=== PATIENT | female | born 1985 | race Two or more races ===

== ENCOUNTER 2016-12-05 01:48 | Emergency (ER) | payer OTHER ==
[2016-12-05 01:48] VITALS: BMI 33.9
[2016-12-05] MEDS ORDERED: Sodium Chloride 0.9% 1,000 ML IV ONE (03:18)
[2016-12-05] MEDS ORDERED: Sodium Chloride 0.9% 1,000 ML ONE (03:33)
[2016-12-05 03:37] LABS: BASO % 0.2 % (0.0-2.0); EOS # 0.1 K/uL (0.0-0.7); EOS % 0.5 % (0.0-4.0); HEMATOCRIT 42.9 % (34.0-47.0); LYMPH # 1.4 K/uL (1.0-4.3); LYMPH % 12.5 % (20.0-40.0); MEAN CELL VOLUME 82.4 fL (81.0-99.0); MEAN CORPUSCULAR HEMOGLOBIN 26.4 pg (27.0-31.0); MEAN CORPUSCULAR HGB CONC 32.1 g/dL (33.0-37.0); MEAN PLATELET VOLUME 8.2 fL (7.2-11.7); MONO # 0.7 K/uL (0.0-0.8); MONO % 6.7 % (0.0-10.0); RED CELL DISTRIBUTION WIDTH 13.2 % (11.5-14.5); WHITE BLOOD COUNT 11.2 K/uL (4.8-10.8)
[2016-12-05 03:47] LABS: CHLORIDE 105 mmol/L (98-107)
[2016-12-05 03:48] LABS: POTASSIUM 3.6 mmol/L (3.6-5.2); SODIUM 138 mmol/L (132-148)
[2016-12-05 03:50] LABS: ALB/GLOB RATIO 1.1 (1.0-2.1); AST/SGOT 22 U/L (14-36); BILIRUBIN,TOTAL 0.6 mg/dL (0.2-1.3); CARBON DIOXIDE 21 mmol/L (22-30); GFR AFRICAN-AMERICAN > 60; TOTAL PROTEIN 7.3 g/dL (6.3-8.3)
[2016-12-05 03:51] LABS: ALKALINE PHOSPHATASE 123 U/L (38-126); ALT/SGPT 27 U/L (9-52); BLOOD UREA NITROGEN 10 mg/dL (7-17); CALCIUM 8.8 mg/dl (8.6-10.4); GLUCOSE,RANDOM 111 mg/dL (65-105)
[2016-12-05 04:04] VITALS: RESP 16
[2016-12-05 04:20] LABS: THYROID STIMULATING HORMONE 0.84 mIU/L (0.46-4.68)
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
--- NOTE | 2016-12-05 04:38 | C.PDOC ---
Time Seen by Provider: 12/05/16 03:03 Chief Complaint (Nursing): Palpitations Past Medical History Vital Signs: Last Vital Signs Temp 98.1 F 12/05/16 02:14 Pulse 113 H 12/05/16 04:03 Resp 16 12/05/16 04:03 BP 130/72 12/05/16 04:03 Pulse Ox 100 12/05/16 04:03 Surgical History: - [facility] Procedures EXTRACTION OF POC, LOW CERVICAL, OPEN APPROACH (02/11/16) LOW CERVICAL (03/07/14) OCCLUSION OF BILATERAL FALLOPIAN TUBES, OPEN APPROACH (02/11/16) SURG INDUCT LABOR NEC (03/07/14) - Social History Hx Alcohol Use: No Hx Substance Use: No - Immunization History Hx Tetanus Toxoid Vaccination: Yes Hx Influenza Vaccination: Yes Hx Pneumococcal Vaccination: Yes ED Course And Treatment - Laboratory Results Result Diagrams: 12/05/16 03:34 12/05/16 03:34 O2 Sat by Pulse Oximetry: 100 Disposition Counseled Patient/Family Regarding: Diagnosis, Need For Followup - Disposition Referrals: [facility] [Outside] Disposition: HOME/ ROUTINE Disposition Time: 04:35 Condition: STABLE Additional Instructions: Increase PO fluids Follow up in clinic for further evaluation Return to ER if difficulty breathing, chest pain, dizziness, fainting or worse Instructions: Palpitations (ED) - Clinical Impression Clinical Impression: Palpitations
[2016-12-05 04:54] VITALS: BP 110/75; PULSE 105; TEMP 98.8
[2016-12-05 05:29] VITALS: O2SAT 100
--- NOTE | 2016-12-06 10:08 | CARD ---
APPROVED REPORT EKG Measurement Heart [id number] <Conclusion> Sinus tachycardia Otherwise normal ECG
== END 2016-12-05 05:09 | disposition home or self-care (01) ==
LOC: C.ER 01:48
DX: R00.2 Palpitations (principal)
CPT/HCPCS: 80053; 84443; 85025; 85378; 93005; 99285; J7040

== ENCOUNTER 2017-04-02 14:04 | Emergency (ER) | payer OTHER ==
[2017-04-02 14:04] VITALS: BMI 33.9
[2017-04-02 14:19] VITALS: O2SAT 100
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
[2017-04-02 16:42] VITALS: BP 103/71; PULSE 83; RESP 20; TEMP 98.1
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
== END 2017-04-02 17:16 | disposition home or self-care (01) ==
LOC: C.ER 14:04
DX: S00.12XA Contusion of left eyelid and periocular area, initial encounter (principal); Y04.0XXA Assault by unarmed brawl or fight, initial encounter